=== PATIENT | male | born 1970 | race Two or more races ===

== ENCOUNTER 2023-10-07 09:30 | Inpatient (IN) | payer MEDICAID, OTHER ==
[2023-10-07] VITALS (8 sets, daily range): BP systolic 114–129; BP diastolic 59–77; PULSE 79–91; RESP 16–24; TEMP 98.5–100.4; O2SAT 95–97
[~2023-10-07] VITALS: Ht 182.9 cm; Wt 94.3 kg
[2023-10-07 10:53] LABS: Hematocrit 16.6 % (41.0-53.0); Red Blood Cells 1.61 10^6/uL (4.5-5.90)
[2023-10-07 10:55] LABS: Mean Corpuscular Hemoglobin 32.9 pg (28.0-32.0); Mean Corpuscular Volume 102.8 fL (80.0-100.0); Red Cell Distribution Width 17.6 % (11.8-14.3); White Blood Cell 24.4 10^3/uL (4.4-10.8)
[2023-10-07 11:01] LABS: Hemoglobin 5.3 g/dL (13.5-17.5)
[2023-10-07 11:03] LABS: Basophils % (manual) 0 (0.0-2.0); Blast Cells 0; Metamyelocytes % 0; Myelocytes % 0; Promyelocytes % 0; Reactive Lymphocytes 0
[2023-10-07 11:12] LABS: Alanine Aminotransferase 18 U/L (7-40); Alkaline Phosphatase 126 U/L (46-116); Anion Gap 8 (5-15); Aspartate Aminotransferase 19 U/L (13-40); BUN/Creatinine Ratio 13.8 (10.0-20.0); Blood Urea Nitrogen 17 mg/dL (9-23); Calcium 8.8 mg/dL (8.5-10.1); Carbon Dioxide 22 mmol/L (20-30); Chloride 110 mmol/L (98-107); Glucose 103 mg/dL (74-106); Potassium 3.9 mmol/L (3.5-5.1); Sodium 140 mmol/L (136-145)
[2023-10-07 11:13] LABS: Bilirubin, Total 0.7 mg/dL (0.2-1.0); Total Protein 6.8 g/dL (5.7-8.2)
[2023-10-07 11:23] LABS: COVID19 ANTIGEN SOFIA FIA NEGATIVE (NEGATIVE); Rapid Influenza A Negative (Negative); Rapid Influenza B Negative (Negative)
[2023-10-07] MEDS ORDERED: AZITHROMYCIN 500MG/ 250ML 250 ML IV ONE (12:15)
[2023-10-07] MEDS ORDERED: cefTRIAXone 1GM/50ML D5W 50 ML IV ONE (12:15)
[2023-10-07 12:16] LABS: Band Neutrophils % (manual) 1; Eosinophils % (manual) 1 (0-7); Giant Platelets Few; Lymphocytes % (manual) 17 (10.0-50.0); Monocytes % (manual) 52 (0-12); Platelet Estimate Decreased
[2023-10-07] MEDS ORDERED: NITROGLYCERIN 0.4 MG SL TAB SL PRN (14:45)
[2023-10-07] MEDS ORDERED: ACETAMINOPHEN 325 MG TAB PO PRN (14:45)
[2023-10-07] MEDS ORDERED: MORPHINE SULFATE INJ 2 MG/ml SYRG IV PRN (14:45)
[2023-10-07] MEDS: SODIUM CHLORIDE 0.9% 1,000 ML IV SCH (15:06)
[2023-10-07 15:46] LABS: % Iron Saturation 62.8 % (20-55)
[2023-10-07 15:53] LABS: Nucleated Red Blood Cells % 0.1 %
[2023-10-07 15:54] LABS: Platelet Estimate Decreased
[2023-10-07 15:55] LABS: Macrocytosis Slight
[2023-10-07 15:57] LABS: Folate (Folic Acid) 19.99 ng/mL (>5.38)
[2023-10-08] VITALS (9 sets, daily range): BP systolic 124–139; BP diastolic 72–80; PULSE 74–128; RESP 14–25; TEMP 97.6–99.2; O2SAT 94–97
[2023-10-08] MEDS: SODIUM CHLORIDE 0.9% 1,000 ML IV SCH (07:25)
[2023-10-08 07:29] LABS: Hematocrit 23.7 % (41.0-53.0); Mean Corpuscular Hemoglobin 31.6 pg (28.0-32.0)
[2023-10-08 07:32] LABS: Hemoglobin 7.8 g/dL (13.5-17.5); Mean Corpuscular Hgb Conc. 32.7 g/dL (32.0-36.0); Mean Corpuscular Volume 96.5 fL (80.0-100.0); Red Blood Cells 2.46 10^6/uL (4.5-5.90); Red Cell Distribution Width 16.8 % (11.8-14.3); White Blood Cell 17.3 10^3/uL (4.4-10.8)
[2023-10-08 07:53] LABS: Alanine Aminotransferase 15 U/L (7-40); Alkaline Phosphatase 117 U/L (46-116); Anion Gap 9 (5-15); BUN/Creatinine Ratio 10.3 (10.0-20.0); Blood Urea Nitrogen 12 mg/dL (9-23); Calcium 8.8 mg/dL (8.5-10.1); Carbon Dioxide 21 mmol/L (20-30); Chloride 110 mmol/L (98-107); Glucose 104 mg/dL (74-106); Potassium 4.2 mmol/L (3.5-5.1); Sodium 140 mmol/L (136-145)
[2023-10-08 07:54] LABS: Albumin 3.9 g/dL (3.2-4.8); Aspartate Aminotransferase 19 U/L (13-40); Bilirubin, Total 0.7 mg/dL (0.2-1.0); Total Protein 6.9 g/dL (5.7-8.2)
[2023-10-08 07:57] LABS: Band Neutrophils % (manual) 0; Basophils % (manual) 0 (0.0-2.0); Blast Cells 0; Myelocytes % 0; Promyelocytes % 0; Reactive Lymphocytes 0
[2023-10-08 09:50] LABS: Eosinophils % (manual) 2 (0-7); Lymphocytes % (manual) 25 (10.0-50.0); Metamyelocytes % 10; Monocytes % (manual) 19 (0-12)
[2023-10-08 09:51] LABS: Platelet Estimate Decreased
[2023-10-08] MEDS ORDERED: AZITHROMYCIN 500MG/ 250ML 250 ML IV SCH (10:00)
[2023-10-08 10:08] LABS: Urine Bacteria NONE SEEN /hpf (None Seen); Urine Blood Negative /uL (Negative); Urine Clarity Clear (Clear); Urine Color Yellow (Yellow); Urine Protein, UAD TRACE (Negative); Urine Specific Gravity 1.023 (1.001-1.035); Urine Urobilinogen Normal (Negative); Urine WBC 1 /hpf (0 - 3); Urine pH 6.5 (5.0-8.0)
[2023-10-08] MEDS: cefTRIAXone 1GM/50ML D5W 50 ML IV SCH (10:20)
[2023-10-08 10:58] LABS: Cholesterol 77 mg/dL (< 200); Triglycerides 103 mg/dL (< 150)
[2023-10-08 10:59] LABS: LDL Cholesterol 45 mg/dL (< 100)
[2023-10-08 11:00] LABS: HDL Cholesterol 17 mg/dL (40-59)
[2023-10-08 12:26] LABS: Hematocrit 24.2 % (41.0-53.0); Hemoglobin 7.9 g/dL (13.5-17.5); Mean Corpuscular Hgb Conc. 32.8 g/dL (32.0-36.0); Mean Corpuscular Volume 97.3 fL (80.0-100.0); Red Blood Cells 2.49 10^6/uL (4.5-5.90); White Blood Cell 18.5 10^3/uL (4.4-10.8)
[2023-10-08 12:43] LABS: Band Neutrophils % (manual) 0; Basophils % (manual) 0 (0.0-2.0); Eosinophils % (manual) 0 (0-7); Promyelocytes % 0; Reactive Lymphocytes 0
[2023-10-08 13:45] LABS: Blast Cells 1; Lymphocytes % (manual) 12 (10.0-50.0); Metamyelocytes % 21; Monocytes % (manual) 17 (0-12); Myelocytes % 7
[2023-10-08 13:46] LABS: Platelet Estimate Decreased
[2023-10-08 18:52] LABS: Hemoglobin 7.9 g/dL (13.5-17.5)
[2023-10-08 18:55] LABS: Hematocrit 24.1 % (41.0-53.0); Mean Corpuscular Hemoglobin 32.2 pg (28.0-32.0); Mean Corpuscular Hgb Conc. 32.6 g/dL (32.0-36.0); Mean Corpuscular Volume 98.6 fL (80.0-100.0); Red Blood Cells 2.45 10^6/uL (4.5-5.90); White Blood Cell 20.3 10^3/uL (4.4-10.8)
[2023-10-08 19:10] LABS: Basophils % (manual) 0 (0.0-2.0); Blast Cells 0; Eosinophils % (manual) 0 (0-7); Metamyelocytes % 0; Myelocytes % 0; Promyelocytes % 0; Reactive Lymphocytes 0
[2023-10-08 19:41] LABS: Band Neutrophils % (manual) 1; Lymphocytes % (manual) 13 (10.0-50.0); Monocytes % (manual) 53 (0-12)
[2023-10-08 19:42] LABS: Large Platelets FEW; Platelet Estimate Decreased
[2023-10-09] VITALS (11 sets, daily range): BP systolic 123–141; BP diastolic 63–78; PULSE 74–86; RESP 18–20; TEMP 98.1–98.9; O2SAT 91–100
[2023-10-09] MEDS: SODIUM CHLORIDE 0.9% 1,000 ML IV SCH ×2 (00:05→06:31)
[2023-10-09 01:13] LABS: COVID19 ANTIGEN SOFIA FIA NEGATIVE (NEGATIVE)
[2023-10-09 01:14] LABS: Rapid Influenza A Negative (Negative)
[2023-10-09 01:15] LABS: Rapid Influenza B Positive (Negative)
[2023-10-09 07:18] LABS: Hematocrit 24.6 % (41.0-53.0); Hemoglobin 8.1 g/dL (13.5-17.5); Red Blood Cells 2.54 10^6/uL (4.5-5.90); Red Cell Distribution Width 16.8 % (11.8-14.3)
[2023-10-09 07:22] LABS: Band Neutrophils % (manual) 0; Basophils % (manual) 0 (0.0-2.0); Blast Cells 0; Eosinophils % (manual) 0 (0-7); Metamyelocytes % 0; Myelocytes % 0; Promyelocytes % 0; Reactive Lymphocytes 0
[2023-10-09 07:30] LABS: Chloride 107 mmol/L (98-107); Potassium 4.2 mmol/L (3.5-5.1); Sodium 138 mmol/L (136-145)
[2023-10-09 07:31] LABS: Anion Gap 9 (5-15); Calcium 8.6 mg/dL (8.5-10.1); Carbon Dioxide 22 mmol/L (20-30)
[2023-10-09 07:36] LABS: BUN/Creatinine Ratio 10.3 (10.0-20.0); Blood Urea Nitrogen 11 mg/dL (9-23); Glucose 101 mg/dL (74-106)
[2023-10-09 08:32] LABS: Lymphocytes % (manual) 9 (10.0-50.0); Monocytes % (manual) 61 (0-12); Platelet Estimate Decreased
[2023-10-09] MEDS: ALBUTEROL SULF 2.5 MG/0.5ML(0.5%) NEB SOLN NEB PRN ×2 (09:41→15:52)
[2023-10-09] MEDS ORDERED: IOHEXOL 300 MG/ML 100ML BOTTLE IJ ONE (09:46)
[2023-10-09] MEDS: OSELTAMIVIR 75 MG CAP PO SCH ×2 (09:46→21:53)
[2023-10-09] MEDS: cefTRIAXone 1GM/50ML D5W 50 ML IV SCH (09:46)
[2023-10-09 14:17] LABS: Urine Bacteria NONE SEEN /hpf (None Seen); Urine Blood Negative /uL (Negative); Urine Clarity Clear (Clear); Urine Color Yellow (Yellow); Urine Mucus FEW (None Seen); Urine Protein, UAD TRACE (Negative); Urine Specific Gravity 1.019 (1.001-1.035); Urine Urobilinogen Normal (Negative); Urine WBC 2 /hpf (0 - 3); Urine pH 6.5 (5.0-8.0)
[2023-10-09 14:18] LABS: INR 1.25 (0.9-1.15); Partial Thromboplastin Time 35.2 SEC (24.5-34.5); Prothrombin Time 12.9 sec (9.3-11.8)
[2023-10-10] VITALS (7 sets, daily range): BP systolic 112–122; BP diastolic 67–68; PULSE 74–79; RESP 16–20; TEMP 98.5–98.7; O2SAT 92–95
[2023-10-10 06:56] LABS: Alanine Aminotransferase 11 U/L (7-40); Albumin 3.9 g/dL (3.2-4.8); Alkaline Phosphatase 118 U/L (46-116); Anion Gap 6 (5-15); Aspartate Aminotransferase 17 U/L (13-40); BUN/Creatinine Ratio 9.8 (10.0-20.0); Blood Urea Nitrogen 11 mg/dL (9-23); Calcium 8.4 mg/dL (8.7-10.4); Carbon Dioxide 23 mmol/L (20-30); Chloride 107 mmol/L (98-107); Glucose 104 mg/dL (74-106); Hemoglobin 8.6 g/dL (13.5-17.5); Magnesium 2.4 mg/dL (1.6-2.6); Sodium 136 mmol/L (136-145)
[2023-10-10 06:57] LABS: Bilirubin, Total 0.6 mg/dL (0.2-1.0)
[2023-10-10 06:59] LABS: Hematocrit 26.3 % (41.0-53.0); Mean Corpuscular Hemoglobin 32.3 pg (28.0-32.0); Mean Corpuscular Hgb Conc. 32.8 g/dL (32.0-36.0); Mean Corpuscular Volume 98.6 fL (80.0-100.0); Red Blood Cells 2.67 10^6/uL (4.5-5.90); Red Cell Distribution Width 16.7 % (11.8-14.3); White Blood Cell 20.9 10^3/uL (4.4-10.8)
[2023-10-10 07:06] LABS: INR 1.24 (0.9-1.15); Partial Thromboplastin Time 35.9 SEC (24.5-34.5); Prothrombin Time 12.8 sec (9.3-11.8)
[2023-10-10 07:20] LABS: Band Neutrophils % (manual) 0; Basophils % (manual) 0 (0.0-2.0); Eosinophils % (manual) 0 (0-7); Metamyelocytes % 0; Myelocytes % 0; Promyelocytes % 0; Reactive Lymphocytes 0
[2023-10-10] MEDS ORDERED: fentaNYL CITRATE 100 MCG/2 ML VL IV ONE (07:30)
[2023-10-10] MEDS ORDERED: MIDAZOLAM HCL 2MG/2ML 2ml VIAL (1mg/ml) IV ONE (07:30)
[2023-10-10] MEDS ORDERED: FLUMAZENIL 0.1 MG/ML INJ 10ML MDV IV ONE (07:58)
[2023-10-10] MEDS ORDERED: NALOXONE HCL 1MG/ML 2ML SYRINGE ONE (07:59)
[2023-10-10 08:06] LABS: Haptoglobin 165 mg/dL (29-370)
[2023-10-10] MEDS: cefTRIAXone 1GM/50ML D5W 50 ML IV SCH (08:55)
[2023-10-10] MEDS ORDERED: LIDOCAINE 2%HCL (LOCAL ANESTH.) INJ 10ml MDV ONE (09:10)
[2023-10-10] MEDS: OSELTAMIVIR 75 MG CAP PO SCH (10:07)
[2023-10-10 10:34] LABS: Blast Cells 2; Lymphocytes % (manual) 14 (10.0-50.0); Monocytes % (manual) 55 (0-12)
[2023-10-10 10:35] LABS: Platelet Estimate Decreased
[2023-10-10 11:06] LABS: Anti-Nuclear Antibody Direct Negative (Negative)
[2023-10-10 14:25] LABS: Rapid Influenza A Negative (Negative); Rapid Influenza B Negative (Negative)
[2023-10-10] MEDS ORDERED: OSEL75CA5 PO (14:29)
[2023-10-10] MEDS ORDERED: ACET500T58 PO (14:32)
[2023-10-10 15:53] LABS: Hepatitis A Ab IgM Negative
[2023-10-10 15:54] LABS: Hepatitis B Core IgM Negative; Hepatitis B Surface Antigen Negative (Negative); Hepatitis C Antibody Negative (Negative)
== END 2023-10-10 13:35 | disposition home or self-care (01) | DRG 663 ==
LOC: ER 09:30 → TELE 14:47 → TELE-CENTR 10-08 17:35 → CENTRAL 10-09 13:19
PROVIDERS: ADMIT Internal Medicine; ATTEND Internal Medicine
PROC: 30233N1 Transfusion of Nonautologous Red Blood Cells into Peripheral Vein, Percutaneous Approach (ICD-10-PCS; 2023-10-07)
PROC: 07DR3ZX Extraction of Iliac Bone Marrow, Percutaneous Approach, Diagnostic (ICD-10-PCS; principal; 2023-10-10)
DX: D50.9 Iron deficiency anemia, unspecified (principal); J96.00 Acute respiratory failure, unspecified whether with hypoxia or hypercapnia; D69.6 Thrombocytopenia, unspecified; D53.9 Nutritional anemia, unspecified; E11.9 Type 2 diabetes mellitus without complications; D72.821 Monocytosis (symptomatic); J10.1 Influenza due to other identified influenza virus with other respiratory manifestations; Z20.822 Contact with and (suspected) exposure to COVID-19; R74.8 Abnormal levels of other serum enzymes; D72.829 Elevated white blood cell count, unspecified; Z82.49 Family history of ischemic heart disease and other diseases of the circulatory system; Z87.891 Personal history of nicotine dependence
CPT/HCPCS: 10005; 36415; 71045; 71250; 72192; 74177; 76705; 77012; 80048; 80053; 80061; 80074; 81001; 82270; 82607; 82746; 83010; 83036; 83540; 83550; 83605; 83615; 83735; 83880; 84439; 84443; 84484; 85007; 85025; 85027; 85045; 85379; 85610; 85730; 86038; 86703; 86850; 86880; 86900; 86901; 86920; 87040; 87426; 87804; 93306; 94640; 99291; G0378; J2001; J2250